=== PATIENT | female | born 1995 | race Two or more races ===

== ENCOUNTER 2023-07-04 21:02 | Inpatient (IN) | payer OTHER ==
[~2023-07-04] VITALS: Ht 157.5 cm; Wt 59.0 kg
[2023-07-04] MEDS ORDERED: ZYRTEC10 M3 PO (21:13)
[2023-07-04 22:35] LABS: HEMATOCRIT 42.9 % (36.0-45.00); HEMOGLOBIN 14.2 g/dL (12.0-15.00); MEAN CELL VOLUME 90.4 fL (80.00-100.00); MEAN CORPUSCULAR HEMOGLOBIN 29.9 pg (27.00-32.0); PLATELET COUNT 494 K/uL (150-450); RED BLOOD COUNT 4.75 M/uL (4.00-6.00); RED CELL DISTRIBUTION WIDTH 11.4 % (11.5-14.5)
[2023-07-05 00:11] LABS: CALCIUM 8.9 mg/dL (8.5-10.1); CREATININE SERUM 0.7 mg/dL (0.55-1.02); GFR 101.95; POTASSIUM 3.92 mEq/L (3.5-5.1)
[2023-07-05 00:41] LABS: ABG PH 7.444 (7.35-7.45); ABG PO2 79.7 mmHg (80-100); ABG pCO2 37.9 mmHg (35-45); BASE EXCESS 1.5 mmol/l; BICARBONATE 25.4 mmol/l (23-25); SaO2 96.3 %
[2023-07-06 07:46] LABS: HEMATOCRIT 35.9 % (36.0-45.00); HEMOGLOBIN 12.2 g/dL (12.0-15.00); MEAN CELL VOLUME 90.1 fL (80.00-100.00); MEAN CORPUSCULAR HEMOGLOBIN 30.5 pg (27.00-32.0); MEAN CORPUSCULAR HGB CONC 33.9 g/dl (32.0-36.0); PLATELET COUNT 434 K/uL (150-450); RED BLOOD COUNT 3.98 M/uL (4.00-6.00); RED CELL DISTRIBUTION WIDTH 11.4 % (11.5-14.5)
[2023-07-06 07:55] LABS: PARTIAL THROMBOPLASTIN TIME 31.1 SECONDS (22.0-34.0)
[2023-07-06 08:13] LABS: ALBUMIN 2.8 gm/dL (3.4-5.0); ALKALINE PHOSPHATASE 63 U/L (50-136); ALT/SGPT 15 U/L (12-78); AST/SGOT 20 U/L (15-37); BLOOD UREA NITROGEN 9 mg/dL (7-18); BUN CREA RATIO 25 (7.0-25.0); CALCIUM 8.4 mg/dL (8.5-10.1); CARBON DIOXIDE 25 mEq/L (21-32); CHLORIDE 109 mmol/L (98-107); CHOLESTEROL 126 mg/dL (0-200); CREATININE SERUM 0.36 mg/dL (0.55-1.02); GFR 219.62; GLOBULINA 3.2 G/DL (2.4-3.5); GLUCOSE FASTING 126 mg/dL (65-100); HDL 32 mg/dl (40-60); LDL 84 mg/dl (0-130); OSMOLALITY SERUM 280 MOSM/KG (275-295); POTASSIUM 4.94 mEq/L (3.5-5.1); SODIUM 140 mmol/L (136-145); TRIGLYCERIDES 49 mg/dL (0-150); VLDL 9 (0-39)
[2023-07-06 09:02] LABS: BILIRUBIN,CONJUGATED < 0.10 mg/dL (0.0-0.2)
[2023-07-06 09:07] LABS: ERYTHROCYTE SEDIMENTATION RATE 56 mm/hr
[2023-07-06 11:36] LABS: ABG PH 7.438 (7.35-7.45); ABG PO2 100.7 mmHg (80-100); BICARBONATE 22.5 mmol/l (23-25)
[2023-07-06 14:54] LABS: BILIRUBIN TOTAL 0.21 mg/dL (0.3-1.2)
[2023-07-08 08:05] LABS: HEMATOCRIT 36.6 % (36.0-45.00); HEMOGLOBIN 12.5 g/dL (12.0-15.00); MEAN CELL VOLUME 89.4 fL (80.00-100.00); MEAN CORPUSCULAR HEMOGLOBIN 30.6 pg (27.00-32.0); MEAN CORPUSCULAR HGB CONC 34.3 g/dl (32.0-36.0); PLATELET COUNT 464 K/uL (150-450); RED BLOOD COUNT 4.09 M/uL (4.00-6.00); RED CELL DISTRIBUTION WIDTH 11.6 % (11.5-14.5)
[2023-07-08 08:46] LABS: ALBUMIN 3.1 gm/dL (3.4-5.0); BILIRUBIN TOTAL 0.15 mg/dL (0.3-1.2); CALCIUM 8.7 mg/dL (8.5-10.1); CREATININE SERUM 0.55 mg/dL (0.55-1.02); GFR 134.67; GLOBULINA 3.2 G/DL (2.4-3.5); POTASSIUM 4.58 mEq/L (3.5-5.1); TOTAL PROTEIN 6.3 gm/dL (6.4-8.2)
[2023-07-09] MEDS ORDERED: BUDESONIDE0.5 MG/2 M IH (14:02)
[2023-07-09] MEDS ORDERED: MONTELUKAST SOD10 MG PO (14:02)
[2023-07-09] MEDS ORDERED: LEVOFLOXACIN750 MG PO (14:02)
[2023-07-09] MEDS ORDERED: ALBUTEROL2.5 MG/3 M IH (14:02)
[2023-07-09] MEDS ORDERED: SYMBICORT 80/10.2 GM IH (14:02)
[2023-07-09] MEDS ORDERED: LORATADINE10 MG PO (14:02)
== END 2023-07-09 14:31 | disposition home or self-care (01) | DRG 195 ==
LOC: ER 21:02 → MEDJ 07-05 17:20
PROVIDERS: General Practice; Internal Medicine Geriatric Medicine; ADMIT Internal Medicine; ATTEND Internal Medicine
PROC: BB24ZZZ Computerized Tomography (CT Scan) of Bilateral Lungs (ICD-10-PCS; principal; 2023-07-04)
PROC: 3E0F7GC Introduction of Other Therapeutic Substance into Respiratory Tract, Via Natural or Artificial Opening (ICD-10-PCS; 2023-07-04)
DX: J18.1 Lobar pneumonia, unspecified organism (principal); J30.9 Allergic rhinitis, unspecified